=== PATIENT | female | born 1965 | race Caucasian/White ===

== ENCOUNTER → 2017-06-20 | Outpatient (CLI) | payer BC, OTHER | LOC: RAD 11:25 | DX: Z12.31 Encounter for screening mammogram for malignant neoplasm of breast (principal) ==

== ENCOUNTER → 2019-05-31 | Outpatient (CLI) | payer BC, OTHER | LOC: BC 11:23 | DX: Z12.31 Encounter for screening mammogram for malignant neoplasm of breast (principal) ==

== ENCOUNTER → 2021-07-21 | Outpatient (CLI) | payer BC, OTHER | LOC: BC 09:56 | PROVIDERS: ATTEND Specialist | DX: Z12.31 Encounter for screening mammogram for malignant neoplasm of breast (principal) ==